=== PATIENT | male | born 1950 | race Caucasian/White ===

== ENCOUNTER → 2019-04-21 13:39 | Outpatient (BNVA) | payer OTHER, SELFPAY | PROVIDERS: Family Provider Internal Medicine; PCP Internal Medicine; Visit Provider Otolaryngology | DX: R09.81 Nasal congestion (principal); J34.2 Deviated nasal septum; J34.3 Hypertrophy of nasal turbinates; J31.0 Chronic rhinitis; T48.5X5A Adverse effect of other anti-common-cold drugs, initial encounter; X58.XXXA Exposure to other specified factors, initial encounter; F17.220 Nicotine dependence, chewing tobacco, uncomplicated; F17.210 Nicotine dependence, cigarettes, uncomplicated | CPT/HCPCS: 99213; 99214 ==

== ENCOUNTER → 2020-12-19 10:01 | Outpatient (BNVA) | payer MEDICARE, SELFPAY | PROVIDERS: Family Provider Internal Medicine; PCP Internal Medicine; Referring Provider Internal Medicine; Visit Provider Internal Medicine | DX: K27.9 Peptic ulcer, site unspecified, unspecified as acute or chronic, without hemorrhage or perforation (principal); Z01.812 Encounter for preprocedural laboratory examination | CPT/HCPCS: 87635 ==

== ENCOUNTER 2020-12-25 07:29 | Day surgery (SDC) | payer MEDICARE, SELFPAY ==
[2020-12-25 08:03] VITALS: BP 118/75; PULSE 69; RESP 18; TEMP 36.7; O2SAT 97
[2020-12-25] MEDS: sodium chloride 0.9% 1,000 ML 30 ML IV (08:09)
--- NOTE | 2020-12-25 08:23 | ANES.PREANE2 ---
Pre-Anesthetic Assessment Pre-Anesthetic Assessment: Height/Weight: Height 1.73 m Weight 92.079 kg Temp Pulse Resp BP Pulse Ox 98.1 F 69 18 118/75 97 12/25/20 08:03 12/25/20 08:03 12/25/20 08:03 12/25/20 08:03 12/25/20 08:03 Preop Diagnosis: PUD Proposed Procedure: Operation Date: 12/25/20 09:00 Proposed Procedures p EGD 96161 K27.9(Not Applicable) - Carlos Roque MD Was Beta Caty taken within 24 hours: N/A Was Clonidine taken within 24 hours: N/A Last intake: Intake Last Liquid Date 12/24/20 Last Liquid Time 22:00 Last Solid Date 12/24/20 Last Solid Time 21:30 Social: Social History: No alcohol and No tobacco Exam: Pre-Anes Outpt Exam: alert, oriented x 3, clear to auscultation bilaterally and regular rate & rhythm Airway: Submandibular: WNL Cervical ROM: WNL MP: 2 Dentition: Chipped CV/HEM: CV/HEM: HTN GI: GI: GERD and PUD Metabolic: Metabolic: Morbid obesity Anesthetic Plan: ASA status: 3 Anesthesia: MAC Risk of > 500 ml blood loss (7ml/kg in children): No Meds/Allergies Current Medications: Current Medications Generic Name Dose Route Start Last Admin Trade Name Freq PRN Reason Stop Dose Admin Sodium Chloride 1,000 mls @ 30 ml s/hr 12/25/20 08:00 12/25/20 08:09 Sodium Chloride 0.9% IV 30 mls/hr .Q24H SAGE Administration PFSH Anesthesia PFSH: Social History Smoking and tobacco status: former smoker Alcohol intake: current Alcohol intake frequency: few times a month Alcohol type: beer and hard liquor Data Anesthesia Cardiac Studies: No Data to Display
--- NOTE | 2020-12-25 09:08 | P.HP_ITS ---
Same Day Surgery H&P Indication for Procedure/HPI DATE OF PROCEDURE: December 25, 2020 CHIEF COMPLAINT/INDICATIONFOR SURGICAL PROCEDURE: Follow-up with peptic ulcer disease PREOP DIAGNOSIS: PUD PLANNED PROCEDRUE: Operation Date: 12/25/20 09:00 Proposed Procedures p EGD 57918 K27.9(Not Applicable) - Carlos Roque MD Medications/Allergies* Home Medications Medication Instructions Recorded Confirmed Type acetaminophen 500 mg tablet 500 mg PO DAILY PRN tab 04/13/19 12/25/20 History atorvastatin 10 mg tablet 10 mg PO DAILY tab 04/13/19 12/25/20 History lisinopril 10 mg tablet 10 mg PO DAILY tab 04/13/19 12/25/20 History phenylephrine HCl 0.5 % nasal spray 1 spray INTRANASAL ONCE PRN 04/13/19 12/25/20 History cholecalciferol (vitamin D3) 50 50 mcg PO DAILY 12/12/20 12/25/20 History mcg (2,000 unit) capsule pantoprazole 40 mg tablet,delayed 40 mg PO BID tab 12/12/20 12/25/20 History release diclofenac sodium 1 ea TOPICAL DIRECTED PRN 12/21/20 12/25/20 History Allergies/Adverse Reactions Allergy/AdvReac Type Severity Reaction Status Date / Time etodolac Allergy Unknown Unknown Verified 12/25/20 08:02 ibuprofen [From Motrin] Allergy Unknown Unknown Verified 12/25/20 08:02 pseudoephedrine Allergy Unknown Unknown Verified 12/25/20 08:02 [From Sudafed] tramadol Allergy Unknown Unknown Verified 12/25/20 08:02 Current Medications: Generic Name Dose Route Start Last Admin Trade Name Emil PRN Reason Stop Dose Admin Sodium Chloride 1,000 mls @ 30 mls/hr 12/25/20 08:00 12/25/20 08:09 Sodium Chloride 0.9% IV 30 mls/hr .Q24H SAGE Administration Pertinent History/Comorbid Conditions* Social History Smoking and tobacco status: former smoker Alcohol intake: current Alcohol intake frequency: few times a month Alcohol type: beer and hard liquor Pertinent Exam Findings alert, oriented x 3, clear to auscultation bilaterally, regular rate & rhythm, operative site marked and procedure specific exam findings Recommendations Surgery/Procedure today Coding Level of Care Code Acute Animation Director for Yesy Tuttle
[2020-12-25 09:42] VITALS: BP 146/92; PULSE 69; RESP 16; TEMP 36.3; O2SAT 99
--- NOTE | 2020-12-25 09:48 | ANE.PACU2 ---
Inpatient post-anesthesia follow up: Airway intact: Yes Vital signs: Temperature 97.4 F Pulse Rate 69 Respiratory Rate 16 Blood Pressure 146/92 Pulse Oximetry 99 Oxygen Delivery Me thod Nasal Cannula Oxygen Flow Rate 2 Fraction of Inspir ed Oxygen Hydration adequate: Yes Nausea and vomiting: No Pain level: 1 Mental status: Baseline
[2020-12-25 09:55] VITALS: BP 118/84; PULSE 66; RESP 16; O2SAT 99
== END 2020-12-25 10:10 | disposition home or self-care (01) ==
PROVIDERS: PCP Internal Medicine; Visit Provider Internal Medicine
PROC: 0DJ08ZZ Inspection of Upper Intestinal Tract, Via Natural or Artificial Opening Endoscopic (ICD-10-PCS; CPT 43235; principal; 2020-12-25 09:00)
DX: Z87.11 Personal history of peptic ulcer disease (principal); I10 Essential (primary) hypertension; K21.9 Gastro-esophageal reflux disease without esophagitis; E66.01 Morbid (severe) obesity due to excess calories; Z68.30 Body mass index [BMI] 30.0-30.9, adult; Z87.891 Personal history of nicotine dependence
CPT/HCPCS: 43235; 96360; 96361; J2704; J7030

== ENCOUNTER → 2022-03-11 14:39 | Outpatient (BNVA) | payer MEDICARE, SELFPAY | PROVIDERS: PCP Family Medicine; Referring Provider Emergency Medicine; Visit Provider Specialist | DX: M19.011 Primary osteoarthritis, right shoulder (principal) | CPT/HCPCS: 73030; 99204 ==

== ENCOUNTER 2022-05-06 15:31 | Outpatient (CLI) | payer MEDICARE, SELFPAY ==
--- NOTE | 2022-05-06 16:00 | MR_ITS ---
WS: [id number] MRI RIGHT SHOULDER HISTORY: right shoulder pain COMPARISON: Radiographs 03/11/2022 TECHNIQUE: Multiplanar sequences of the shoulder joint are submitted. Severe osteoarthritic changes involving the AC joint. There is marked soft tissue thickening and bony hypertrophy. Mixed signal within the distal clavicle, acromion and soft tissues from acute inflammat ory processes. There are osteophytes encroaching from the acromion and the clavicle upon the supraspi natus tendon. Small erosions involving the distal clavicle and the acromion. Broad-based osteophyte a long the undersurface of the acromion with mild subacromial impingement. There is a small amount of f luid in the subacromial and subdeltoid bursa. Abnormal signal in the biceps tendon in the bicipital g roove. The biceps tendon is small caliber and may be partially subluxed. Just beyond the bicipital gr oove there is increased signal and thickening of the tendon. There is at least a partial tear. No os acromion. No significant atrophy, fatty replacement or edema within the rotator cuff muscles. There is a small amount of fluid in the rotator cuff interval. Thickening and tendinopathy in the distal subscapularis tendon. No tear. There is mild fraying and tendinopathy involving the distal bursal and articular da silva rfaces of the supraspinatus tendon. No tear. There is a small amount of fluid adjacent to the distal infraspinatus tendon. No full-thickness tear. Very minimal tear involving distal tendon along the art icular surface may be present. Moderate narrowing of the glenohumeral joint. The labrum is small but no tear is identified. MR/MR shoulder RT wo con* [id number] IMPRESSION: 1. Severe osteoarthritic changes involving the AC joint with marked bone hyper trophy and soft tissue hypertrophy encroaching upon the supraspinatus tendon. 2. Mild subacromial impingement by osteophyte. 3. Abnormal biceps tendon. Tendon is small caliber in the bicipital groove. Ab normal signal and thickening from tendinopathy just external to the bicipital g roove. Suspect partial tear and tendinopathy in the biceps tendon. 4. No definite rotator cuff tendon tears are identified. Tendinopathy in the d istal supraspinatus and subscapularis tendons. Indeterminate for very tiny infr aspinatus tendon tear at the footprint. 5. Moderate glenohumeral joint narrowing.
== END 2022-05-06 15:32 | disposition home or self-care (01) ==
LOC: RAD 15:37
PROVIDERS: PCP Family Medicine; Visit Provider Specialist
DX: M19.011 Primary osteoarthritis, right shoulder (principal)
CPT/HCPCS: 73221

== ENCOUNTER → 2022-06-11 10:39 | Outpatient (BNVA) | payer MEDICARE, SELFPAY | PROVIDERS: PCP Family Medicine; Visit Provider Nurse Practitioner Family | DX: M19.011 Primary osteoarthritis, right shoulder (principal); M67.921 Unspecified disorder of synovium and tendon, right upper arm; M67.911 Unspecified disorder of synovium and tendon, right shoulder | CPT/HCPCS: 99214 ==

== ENCOUNTER → 2022-07-01 12:54 | Outpatient (BNVA) | payer MEDICARE, SELFPAY | PROVIDERS: PCP Family Medicine; Visit Provider Specialist | DX: M75.41 Impingement syndrome of right shoulder (principal); M67.911 Unspecified disorder of synovium and tendon, right shoulder; M67.921 Unspecified disorder of synovium and tendon, right upper arm; M19.011 Primary osteoarthritis, right shoulder | CPT/HCPCS: 99214 ==

== ENCOUNTER 2022-07-05 05:42 | Day surgery (SDC) | payer MEDICARE, SELFPAY ==
[2022-07-05] VITALS (7 sets, daily range): BP systolic 91–121; BP diastolic 65–85; PULSE 65–82; RESP 12–18; TEMP 36.2–36.8; O2SAT 92–97
[2022-07-05 06:37] LABS: Glucose Point of Care 105 mg/dL (70-110)
--- NOTE | 2022-07-05 06:37 | ECG_ITS ---
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 Measurements Intervals Joseph Rate: 70 P: 35 GA: 206 QRS: 39 QRSD: 99 T: 38 QT: 382 QTc: 415 Interpretive Statements SINUS RHYTHM No previous ECG available for comparison Electronically Signed On 07-05-2022 23:13:42 CDT by Dejuan Del Rio M.D. [id number]
[2022-07-05] MEDS: acetaminophen 1,000 MG/100 ML PIGGYBACK 400 MG IV (06:40)
[2022-07-05] MEDS: sodium chloride 0.9% 1,000 ML 30 ML IV (06:41)
[2022-07-05] MEDS: gabapentin 300 mg Capsule PO (06:43)
--- NOTE | 2022-07-05 06:43 | P.ANESASSM_ITS ---
Pre-Anesthetic Assessment Height/Weight: Height 1.73 m Weight 90.718 kg Temp Pulse Resp BP Pulse Ox O2 Del Method 98.3 F 82 18 121/85 94 07/05/22 06:12 07/05/22 06:12 07/05/22 06:12 07/05/22 06:12 07/05/22 06:12 07/05/22 06:21 Preop Diagnosis: Right shoulder impingement with possible rotator cuff tear Operation Date: 07/05/22 07:00 Proposed Procedures p right shoulder open acromioplasty and distal clavicle resection. 16064 and 16834,: M67.921 M67.911 M19.011(Right) - Jahaira Lamb MD s Distal Clavicle Resection(Right) - Jahaira Lamb MD Familial anesthetic complications: None Was Beta Caty taken within 24 hours: N/A Was Clonidine taken within 24 hours: N/A Last intake: Intake Last Liquid Date 07/04/22 Last Liquid Time 23:00 Last Solid Date 07/04/22 Last Solid Time 23:00 Social Alcohol and Tobacco Exam alert, oriented x 3, clear to auscultation bilaterally and regular rate & rhythm Airway Mallampati: Class III Dentition: chipped CV/HEM Hypertension GI Peptic Ulcer Disease Anesthetic Plan ASA status: 2 Anesthesia: General and Regional (specify below) Risk of > 500 ml blood loss (7ml/kg in children): No Medications/Allergies Home Medications Medication Instructions Recorded Confirmed Last Taken Type acetaminophen 500 mg tablet 500 mg PO DAILY PRN Pain 04/13/19 07/04/22 07/04/22 History (Tylenol Extra Strength) atorvastatin 10 mg tablet 10 mg PO DAILY 04/13/19 07/04/22 07/04/22 History phenylephrine HCl 0.5 % nasal 1 spray intranasal ONCE PRN nasal 04/13/19 07/04/22 07/04/22 History spray (Dylon-Synephrine congestion (phenylephrine)) cholecalciferol (vitamin D3) 50 50 mcg PO DAILY 12/12/20 07/05/22 07/04/22 History mcg (2,000 unit) capsule diclofenac sodium 1 % topical gel 1 ea topical DIRECTED PRN Pain 12/21/20 07/04/22 07/03/22 History lisinopril 10 mg tablet 10 mg PO DAILY 90 days #90 tabs 01/09/21 07/04/22 0 07/04/22 Rx Allergies Allergy/AdvReac Type Severity Reaction Status Date / Time etodolac Allergy Intermediate ALGY-Swell Verified 07/04/22 09:28 Lip/Tongue/Throat ibuprofen [From Motrin] Allergy Unknown Unknown Verified 07/01/22 12:58 pseudoephedrine Allergy Unknown Unknown Verified 07/01/22 12:58 [From Sudafed] tramadol Allergy Unknown ADR-Swelling Verified 07/04/22 09:28 of the Eye Current Medications Generic Name Dose Route Start Last Admin Trade Name Freq PRN Reason Stop Dose Admin Sodium Chloride 1,000 mls @ 30 mls/hr 07/05/22 06:00 07/05/22 06:41 Sodium Chloride 0.9% IV 07/06/22 05:59 30 mls/hr .Q24H SAGE Administration PFSH Anesthesia Medical History Hypertension Surgical History History of hemorrhoidectomy History of oral surgery History of tonsillectomy Social History Smoking and tobacco status: current some day smoker cigarettes [ Other cigarette details: smokes every once in a while] and smokeless tobacco Smokeless tobacco user: chewing tobacco Alcohol intake: current Alcohol intake frequency: few times a month Alcohol type: beer and hard liquor Data Anesthesia Cardiac Studies: No Data to Display
--- NOTE | 2022-07-05 06:50 | W.PM.OPSUD ---
Surgery/Procedure H&P Update DATE OF PROCEDURE: July 05, 2022 DATE H&P PERFORMED: 07/01/22 H&P UPDATE INFORMATION: I have reviewed H&P completed within last 30 days, I have examined patient prior to procedure, No changes to prior documentation and H&P is in [facility] EMR on date indicated PREOP DIAGNOSIS: Right shoulder impingement with possible rotator cuff tear PLANNED PROCEDURE: Operation Date: 07/05/22 07:00 Proposed Procedures p right shoulder open acromioplasty and distal clavicle resection. 33459 and 10343,: M67.921 M67.911 M19.011(Right) - Jahaira Lamb MD s Distal Clavicle Resection(Right) - Jahaira Lamb MD Related Problem List Diagnoses (1) Impingement syndrome of right shoulder: (2) Tendinopathy of right rotator cuff: (3) Biceps tendinopathy of right upper extremity:
--- NOTE | 2022-07-05 07:03 | ANES.PROC ---
Anesthesia Procedures Procedure/Date: 07/05/22 Nerve Block ^: Nerve Block 1: Main Anesthesia: general anesthesia Time Out Performed: Yes Consent: requested by attending/covering physician, from patient, risks and benefits reviewed and patient agrees to proceed Nerve block location: interscalene (R) Anesthesia monitors applied: pulse oximetry, EKG, BP cuff and oxygen Nerve block position: semi sitting Anesthetic Used: ropivicaine 0.5% (20 ml) and with decadron (4 mg) Ultrasound used to: recognize landmarks, visualize and ID brachial plexus and visualize and ID interscalene groove Nerve Stimulator Used?: No Interscalene/Femoral BLK: 2 stimuplex 22 g needle used for position and inplane approach, visualize local anesthetic spread and no vascular puncture identified Injection: neg aspiration of heme Patient Tolerated Procedure: well Complications: none
[2022-07-05] MEDS: ceFAZolin 2,000 MG in sodium chloride 0.9% (plus) 50 ML 100 MG IV (07:08)
[2022-07-05] MEDS: ceFAZolin 1,000 mg SDV 1000 MG IRRIGATION (07:53)
[2022-07-05] MEDS: vancomycin 1,000 MG SDV 1000 MG XX (08:17)
--- NOTE | 2022-07-05 08:56 | P.OP_ITS ---
Operative Report Date of procedure: July 05, 2022 Pre-op diagnosis: Right shoulder impingement with rotator cuff and biceps tendinopathy, acromioclavicular joint degenerative osteoarthritis, and possible rotator cuff tear Post-op diagnosis: Right shoulder impingement with rotator cuff tear, impingement syndrome, acromioclavicular joint degenerative osteoarthritis, and biceps tendinopathy Post-op findings: Small oval rotator cuff tear at insertion of anterior supraspinatus tendon Procedure done: Open right rotator cuff repair with acromioplasty, distal clavicle resection, and bursectomy Specimens removed/disposition: Bone, disposed of Pathology: none sent Surgeon: Jahaira Lamb Sr. Strategic Sourcing Manager: [facility] operating room technicians Anesthesia: General (Intubated, ASA 2 with supplemental interscalene block) Estimated blood loss (mL): 25 IV fluids (mL): 1,000 Urine output (mL): 0 (No Marin) Complications: None Findings: Large anterolateral acromial osteophyte with severe impingement upon the rotator cuff. Acromioclavicular joint degenerative osteoarthritis. Bursitis and tendinitis of the rotator cuff. Condition: stable Disposition: PACU (Then return to same-day surgery for discharge to home) Brief History: This 71-year-old gentleman presented to the office with complaints of right shoulder pain. Initially, we proceeded with nonoperative intervention, but the pain worsened and he wished to proceed with surgery. He had MRI documentation of biceps and rotator cuff tendinitis as well as acromioclavicular joint degenerative osteoarthritis and impingement. The patient return to the clinic and discussion was undertaken regarding surgical intervention. He understands he has glenohumeral osteoarthritis, but he is not interested in addressing this in the form of a shoulder arthroplasty. After discussion, we elected to proceed with an open rotator cuff repair, acromioplasty, and distal clavicle resection. He understood we would be evaluating for rotator cuff tear and addressing this if present. Procedure: The patient was brought to the operating theater and underwent general intubated anesthesia, ASA 2, which was supplemented with interscalene block preoperatively. The patient was placed in a beachchair position and subsequently the right upper extremity was prepped and draped in the usual fashion utilizing DuraPrep. The arm was draped free. A surgical pause was performed prior to commencement of the surgical procedure. At the time of the surgical pause, we confirmed the site and side of surgery as well as administration of appropriate preoperative antibiotics Ancef 2 g. MRI was also reviewed at that time. Following the surgical pause, an incision was made at approximately the level of the acromioclavicular joint extending across the anterolateral corner of the acromion and distally as necessary. Care was taken to avoid injury to the axillary nerve by limiting the distal extent of the incision. Dissection continued through skin and soft tissues using a scalpel. Hemostasis was obtained using electrocautery. Soft tissues were elevated off the acromion. There was a large anterolateral osteophyte which caused very significant compression on the distal supraspinatus tendon and the remainder of the rotator cuff. There was also obvious bursitis which was resected. An acromioplasty was then accomplished using a combination of a saw and a power rasp. With this, we were able to remove compression caused by the acromion. The rotator cuff was then evaluated to look for tears. At the insertion point, slightly proximal, there was an oval-shaped rotator cuff tear. The rotator cuff tear was evaluated. The edges were freshened using a scalpel. The tear was within the substance of the supraspinatus tendon without continuing to the insertion point. It was primarily longitudinal in nature. Repair was accomplished using 0 Ethibond. The tear repaired nicely without significant stress across the suture sites. After the rotator cuff had been thus addressed, the shoulder was placed through further range of motion to assure there was no further evidence of rotator cuff tear. The acromioclavicular joint was exposed. A saw was then used to resect the distal clavicle without difficulty. The undersurface of the clavicle was palpated and was slightly further debrided. A power rasp was used to further smooth the area. When this was felt to be adequately resected, the wound was ir rigated. Attention was then directed to closure. The wound was irrigated and closure was accomplished with 0 Vicryl in the capsular tissues overlying the acromioclavicular joint area as well as over the acromion and down into the deltoid muscle. 2-0 Monocryl was used to close the subcutaneous tissues followed by 4-0 Monocryl subcuticular closure. This was followed by Dermabmarlen Prineo and an OpSite. The patient was placed in a slingshot style sling and was returned to the recovery room in satisfactory condition. The patient will be discharged to home to follow-up with me in the office. There were no complications and no specimens. Related Problem List Diagnoses (1) Right rotator cuff tear: (2) Impingement syndrome of right shoulder: (3) Tendinopathy of right rotator cuff: (4) Biceps tendinopathy of right upper extremity:
--- NOTE | 2022-07-05 12:44 | ANE.PACU2 ---
Inpatient post-anesthesia follow up: Airway intact: Yes Vital signs: Temperature 97.1 F Pulse Rate 68 Respiratory Rate 16 Blood Pressure 104/65 Pulse Oximetry 93 Oxygen Delivery Me thod Room Air Oxygen Flow Rate 6 Fraction of Inspir ed Oxygen Hydration adequate: Yes Nausea and vomiting: Yes Pain level: 1 Mental status: Baseline
== END 2022-07-05 12:00 | disposition home or self-care (01) ==
PROVIDERS: PCP Family Medicine; Visit Provider Specialist
PROC: (CPT 23130; principal; 2022-07-05 07:00)
PROC: (CPT 23120; 2022-07-05 07:00)
PROC: (CPT 23120; 2022-07-05 07:00)
DX: M75.41 Impingement syndrome of right shoulder (principal); M67.911 Unspecified disorder of synovium and tendon, right shoulder; M67.921 Unspecified disorder of synovium and tendon, right upper arm; M75.111 Incomplete rotator cuff tear or rupture of right shoulder, not specified as traumatic; I10 Essential (primary) hypertension; Z87.11 Personal history of peptic ulcer disease; F17.210 Nicotine dependence, cigarettes, uncomplicated
CPT/HCPCS: 23120; 23130; 36416; 82962; 93005; J0131; J0690; J1100; J2370; J2405; J2704; J2710; J2795; J3010; J3370; J3490; J7030

== ENCOUNTER → 2022-07-19 09:10 | Outpatient (BNVA) | payer MEDICARE, SELFPAY | PROVIDERS: PCP Family Medicine; Visit Provider Nurse Practitioner Family | DX: M75.111 Incomplete rotator cuff tear or rupture of right shoulder, not specified as traumatic (principal); M75.41 Impingement syndrome of right shoulder; M19.011 Primary osteoarthritis, right shoulder | CPT/HCPCS: 73030; 99024 ==

== ENCOUNTER → 2022-08-23 08:47 | Outpatient (BNVA) | payer MEDICARE, SELFPAY | PROVIDERS: PCP Family Medicine; Visit Provider Nurse Practitioner Family | DX: M75.111 Incomplete rotator cuff tear or rupture of right shoulder, not specified as traumatic (principal); Z98.890 Other specified postprocedural states | CPT/HCPCS: 99024; 99213 ==

== ENCOUNTER → 2022-09-20 08:00 | Outpatient (BNVA) | payer MEDICARE, SELFPAY | PROVIDERS: PCP Family Medicine; Visit Provider Nurse Practitioner Family | DX: M75.111 Incomplete rotator cuff tear or rupture of right shoulder, not specified as traumatic (principal); Z98.890 Other specified postprocedural states | CPT/HCPCS: 99024; 99213 ==

== ENCOUNTER → 2022-09-24 10:14 | Outpatient (BNVA) | payer MEDICARE, SELFPAY | PROVIDERS: PCP Family Medicine; Visit Provider Nurse Practitioner Family | DX: L57.0 Actinic keratosis (principal); L82.0 Inflamed seborrheic keratosis; L82.1 Other seborrheic keratosis; Z71.89 Other specified counseling; L81.4 Other melanin hyperpigmentation; D22.5 Melanocytic nevi of trunk; L57.8 Other skin changes due to chronic exposure to nonionizing radiation | CPT/HCPCS: 17000; 17003; 17110; 99213 ==

== ENCOUNTER → 2023-08-04 08:56 | Outpatient (BNVA) | payer MEDICARE, SELFPAY | PROVIDERS: PCP Family Medicine; Referring Provider Family Medicine; Visit Provider Thoracic Surgery (Cardiothoracic Vascular Surgery) | DX: I71.40 Abdominal aortic aneurysm, without rupture, unspecified (principal); F17.210 Nicotine dependence, cigarettes, uncomplicated | CPT/HCPCS: 99203 ==

== ENCOUNTER → 2023-09-25 10:04 | Outpatient (BNVA) | payer MEDICARE, SELFPAY | PROVIDERS: PCP Family Medicine; Visit Provider Nurse Practitioner Family | DX: L57.0 Actinic keratosis (principal); D22.5 Melanocytic nevi of trunk; L82.1 Other seborrheic keratosis; L81.4 Other melanin hyperpigmentation; Z80.8 Family history of malignant neoplasm of other organs or systems | CPT/HCPCS: 17000; 99213 ==

== ENCOUNTER → 2023-12-25 11:40 | Outpatient (BNVA) | payer OTHER, SELFPAY | PROVIDERS: PCP Family Medicine; Visit Provider Internal Medicine | DX: I71.40 Abdominal aortic aneurysm, without rupture, unspecified (principal); D35.00 Benign neoplasm of unspecified adrenal gland; I10 Essential (primary) hypertension | CPT/HCPCS: 36415; 80053; 82088; 84244; 99204 ==

== ENCOUNTER → 2023-12-29 09:55 | Outpatient (BNVA) | payer OTHER, SELFPAY | PROVIDERS: PCP Family Medicine; Referring Provider Internal Medicine; Visit Provider Internal Medicine | DX: I71.40 Abdominal aortic aneurysm, without rupture, unspecified (principal) | CPT/HCPCS: 82384; 82530; 82570; 83835 ==

== ENCOUNTER → 2024-06-08 15:12 | Outpatient (BNVA) | payer MEDICARE, SELFPAY | PROVIDERS: PCP Family Medicine; Visit Provider Nurse Practitioner Family | DX: L57.8 Other skin changes due to chronic exposure to nonionizing radiation (principal); L82.1 Other seborrheic keratosis; D22.5 Melanocytic nevi of trunk; L81.4 Other melanin hyperpigmentation; L75.0 Bromhidrosis; L57.0 Actinic keratosis | CPT/HCPCS: 10060; 17000; 99213 ==

== ENCOUNTER → 2024-10-13 14:39 | Outpatient (BNVA) | payer MEDICARE, SELFPAY | PROVIDERS: PCP Family Medicine; Visit Provider Nurse Practitioner Family | DX: L84 Corns and callosities (principal); L57.8 Other skin changes due to chronic exposure to nonionizing radiation; L82.1 Other seborrheic keratosis; D22.5 Melanocytic nevi of trunk; L81.4 Other melanin hyperpigmentation | CPT/HCPCS: 17000; 99213 ==

== ENCOUNTER → 2024-10-28 14:34 | Outpatient (BNVA) | payer MEDICARE, SELFPAY | PROVIDERS: PCP Family Medicine; Visit Provider Podiatrist Foot & Ankle Surgery | DX: Q82.8 Other specified congenital malformations of skin (principal); L84 Corns and callosities | CPT/HCPCS: 17110; 99203 ==

== ENCOUNTER → 2024-11-01 08:38 | Outpatient (BNVA) | payer MEDICARE, SELFPAY | PROVIDERS: PCP Family Medicine; Visit Provider Specialist | DX: M19.011 Primary osteoarthritis, right shoulder (principal); M75.41 Impingement syndrome of right shoulder; M67.911 Unspecified disorder of synovium and tendon, right shoulder; M67.921 Unspecified disorder of synovium and tendon, right upper arm | CPT/HCPCS: 20610; 73030; 99214; J1100; J2795; J3301; J9999 ==

== ENCOUNTER → 2024-12-24 11:50 | Outpatient (BNVA) | payer OTHER, SELFPAY | PROVIDERS: PCP Family Medicine; Visit Provider Internal Medicine | DX: D35.00 Benign neoplasm of unspecified adrenal gland (principal); I10 Essential (primary) hypertension; R79.89 Other specified abnormal findings of blood chemistry | CPT/HCPCS: 99214 ==

== ENCOUNTER → 2025-04-01 10:46 | Outpatient (BNVA) | payer OTHER, SELFPAY | PROVIDERS: PCP Family Medicine; Visit Provider Nurse Practitioner Family | DX: L71.1 Rhinophyma (principal); L82.1 Other seborrheic keratosis; L57.8 Other skin changes due to chronic exposure to nonionizing radiation; L81.4 Other melanin hyperpigmentation; L91.8 Other hypertrophic disorders of the skin; Z78.9 Other specified health status; R20.8 Other disturbances of skin sensation; L57.0 Actinic keratosis | CPT/HCPCS: 17000; 17110; 99213 ==